=== PATIENT | female | born 1995 | race Caucasian/White ===

== ENCOUNTER → 2022-03-17 | Outpatient (REF) | LOC: M LABSMTC 10:49 | PROVIDERS: ATTEND Family Medicine | DX: Z20.822 Contact with and (suspected) exposure to COVID-19 (principal) ==

== ENCOUNTER → 2022-10-11 | Outpatient (REF) | payer BC | LOC: M LAB REF 21:22 | PROVIDERS: ATTEND Physician Assistant | DX: J02.9 Acute pharyngitis, unspecified (principal) ==

== ENCOUNTER → 2024-04-20 | Outpatient (REF) | LOC: M EMP 09:06 | PROVIDERS: ATTEND Family Medicine | DX: Z20.822 Contact with and (suspected) exposure to COVID-19 (principal) ==

== ENCOUNTER → 2024-05-03 | Outpatient (REF) | payer BC | LOC: M LAB REF 15:55 | PROVIDERS: ATTEND Surgery | DX: L72.3 Sebaceous cyst (principal) ==